=== PATIENT | female | born 1980 | race African-American/Black ===

== ENCOUNTER 2023-11-12 12:41 | Emergency (ER) | payer OTHER, SELFPAY ==
[2023-11-12] MEDS ORDERED: Meclizine HCl 25 MG TAB ONE (13:24)
[2023-11-12] MEDS ORDERED: Acetaminophen 500 MG TAB ONE (13:25)
[2023-11-12] MEDS ORDERED: Ondansetron ODT 4 MG TAB ONE (13:25)
== END 2023-11-12 13:55 | disposition home or self-care (01) ==
LOC: CSHERS 12:41
DX: S06.0X0A Concussion without loss of consciousness, initial encounter (principal); W22.8XXA Striking against or struck by other objects, initial encounter; Y93.89 Activity, other specified; Y92.830 Public park as the place of occurrence of the external cause
CPT/HCPCS: 70450; Q0162

== ENCOUNTER 2024-07-06 16:08 | Emergency (ER) | payer SELFPAY ==
[2024-07-06] MEDS ORDERED: Ketorolac Tromethamine 30 MG (1 mL) VIAL ONE (16:45)
== END 2024-07-06 17:08 | disposition home or self-care (01) ==
LOC: CSHERS 16:08
DX: M54.42 Lumbago with sciatica, left side (principal); M79.605 Pain in left leg
CPT/HCPCS: 96372; 99283; J1885